=== PATIENT | female | born 1945 | race Two or more races ===

== ENCOUNTER → 2022-03-19 | Emergency (ER) | payer OTHER ==
[~2022-03-19] VITALS: Ht 139.7 cm; Wt 70.3 kg
[~2022-03-19] MED LIST: CARTIA XT300 MG PO; PREVACID15 M1 PO; SINGULAIR10 MG PO
== END | disposition home or self-care (01) ==
LOC: ER 15:22
DX: B34.9 Viral infection, unspecified (principal); I10 Essential (primary) hypertension; Z91.013 Allergy to seafood; Z88.6 Allergy status to analgesic agent